=== PATIENT | female | born 1980 | race African-American/Black ===

== ENCOUNTER 2017-06-21 13:31 | Emergency (ER) | payer MEDICAID ==
[~2017-06-21] VITALS: Ht 172.7 cm; Wt 68.1 kg
[~2017-06-21 13:31] MED LIST: ASPI325T17 PO; CEPH-368 PO; DIAZ5TAB PO; NONE PER PT
[2017-06-21] MEDS ORDERED: IBUPROFEN 200 MG TABLET PO ONE (14:00)
[2017-06-21] MEDS ORDERED: IBUPROFEN 200 MG TABLET ONE (14:56)
[2017-06-21 16:00] VITALS: BP 126/90
== END 2017-06-21 16:25 | disposition home or self-care (01) ==
LOC: ED 16:15
DX: S20.212A Contusion of left front wall of thorax, initial encounter (principal); J45.909 Unspecified asthma, uncomplicated; I10 Essential (primary) hypertension; Y04.2XXA Assault by strike against or bumped into by another person, initial encounter; Y93.89 Activity, other specified; Y92.89 Other specified places as the place of occurrence of the external cause; Y99.8 Other external cause status
CPT/HCPCS: 99284

== ENCOUNTER 2017-11-11 11:17 | Emergency (ER) | payer MEDICAID ==
[~2017-11-11] VITALS: Ht 172.7 cm; Wt 69.0 kg
[2017-11-11] MEDS ORDERED: MELO15TA24 PO (11:33)
[2017-11-11] MEDS ORDERED: OMEP40CA6 PO (11:33)
[2017-11-11 12:20] LABS: BASOPHILS # (AUTO) 0.02 x10^3/uL (0-0.1); BASOPHILS % (AUTO) 1 % (0-1); EOSINOPHILS # (AUTO) 0.02 x10^3/uL (0-0.4); EOSINOPHILS % (AUTO) 0 % (1-7); LYMPHOCYTES # (AUTO) 2.65 x10^3/uL (1-3.4); LYMPHOCYTES % (AUTO) 50 % (22-44); MD NO; MEAN CORPUSCULAR HEMOGLOBIN 29.3 pg (27.0-34.8); MEAN CORPUSCULAR HGB CONC 33.4 g/dL (32.4-35.8); MEAN CORPUSCULAR VOLUME 87.7 fL (80-100); MONOCYTES # (AUTO) 0.37 x10^3/uL (0.2-0.8); MONOCYTES % (AUTO) 7 % (2-9); NEUTROPHILS # (AUTO) 2.22 x10^3/uL (1.8-6.8); NEUTROPHILS % (AUTO) 42 % (42-75); PLATELET COUNT 412 x10^3/uL (130-400); RED BLOOD COUNT 4.88 x10^6/uL (3.82-5.3); RED CELL DISTRIBUTION WIDTH 14.4 % (9.6-15.2)
[2017-11-11 12:26] LABS: ALBUMIN 4.4 g/dL (3.4-5.0); ANION GAP 6 mmol/L (5-15); CALCIUM 8.3 mg/dL (8.5-10.1); CHLORIDE 109 mmol/L (98-107)
[2017-11-11 12:27] LABS: SALICYLATE LEVEL < 1.7 mg/dL (2.8-20.0)
[2017-11-11 12:31] LABS: ACETAMINOPHEN < 2 mcg/mL (10-30)
[2017-11-11 12:41] LABS: AMPHETAMINE SCREEN, URINE Negative (Negative); BARBITURATE SCREEN, URINE Negative (Negative); BENZODIAZEPINE SCREEN, URINE Negative (Negative); CANNABINOID SCREEN, URINE Positive (Negative); COCAINE SCREEN, URINE Negative (Negative); METHADONE SCREEN, URINE Negative (Negative); OPIATE SCREEN, URINE Negative (Negative)
[2017-11-11 23:05] VITALS: BP 98/74
== END 2017-11-11 23:07 | disposition home or self-care (01) ==
LOC: ED 14:00
DX: T42.4X2A Poisoning by benzodiazepines, intentional self-harm, initial encounter (principal); F10.120 Alcohol abuse with intoxication, uncomplicated; F12.10 Cannabis abuse, uncomplicated; Y92.89 Other specified places as the place of occurrence of the external cause; Y90.9 Presence of alcohol in blood, level not specified
CPT/HCPCS: 36415; 80048; 80307; 80329; 82040; 84703; 85025; 93005; 99285; G0480

== ENCOUNTER 2018-05-01 13:53 | Emergency (ER) | payer MEDICAID ==
[~2018-05-01] VITALS: Ht 172.7 cm; Wt 69.2 kg
[~2018-05-01 13:53] MED LIST changes: +MELO15TA24 PO; +OMEP40CA6 PO
[2018-05-01] MEDS ORDERED: KETOROLAC 30 MG/1 ML ONE (14:59)
[2018-05-01] MEDS ORDERED: KETOROLAC 30 MG/1 ML IM ONE (15:00)
[2018-05-01 15:50] VITALS: BP 143/81
== END 2018-05-01 15:55 | disposition home or self-care (01) ==
LOC: ED 15:50
DX: M25.561 Pain in right knee (principal); I10 Essential (primary) hypertension; J45.909 Unspecified asthma, uncomplicated
CPT/HCPCS: 73564; 96372; 99284; J1885

== ENCOUNTER 2018-11-17 12:38 | Emergency (ER) | payer MEDICAID ==
[~2018-11-17] VITALS: Ht 172.7 cm; Wt 75.1 kg
[2018-11-17] MEDS ORDERED: IBUPROFEN 600 MG TABLET PO ONE (14:30)
[2018-11-17 14:48] LABS: HCG UR SG 1.029 (1.003-1.030)
[2018-11-17 14:56] LABS: MICROSCOPIC INDICATED
--- NOTE | 2018-11-17 14:57 | NUR ---
UA SENT. LABS DRAWN. PATIENT TECTING ON PHONE AND WALKING AROUND ROOM.
[2018-11-17 14:58] LABS: BASOPHILS # (AUTO) 0.03 x10^3/uL (0-0.1); BASOPHILS % (AUTO) 0 % (0-1); EOSINOPHILS % (AUTO) 0 % (1-7); LYMPHOCYTES # (AUTO) 2.29 x10^3/uL (1-3.4); LYMPHOCYTES % (AUTO) 16 % (22-44); MD NO; MEAN CORPUSCULAR HEMOGLOBIN 28.4 pg (27.0-34.8); MEAN CORPUSCULAR HGB CONC 32.7 g/dL (32.4-35.8); MEAN CORPUSCULAR VOLUME 86.9 fL (80-100); MEAN PLATELET VOLUME 7.9 fL (7.4-10.4); MONOCYTES # (AUTO) 0.41 x10^3/uL (0.2-0.8); MONOCYTES % (AUTO) 3 % (2-9); NEUTROPHILS # (AUTO) 11.97 x10^3/uL (1.8-6.8); NEUTROPHILS % (AUTO) 81 % (42-75); PLATELET COUNT 393 x10^3/uL (130-400); RED BLOOD COUNT 4.82 x10^6/uL (3.82-5.3); RED CELL DISTRIBUTION WIDTH 13.5 % (9.6-15.2)
[2018-11-17 15:05] VITALS: BP 137/90
[2018-11-17 15:08] LABS: ALANINE AMINOTRANSFERASE 27 U/L (12-78); ALBUMIN 4.3 g/dL (3.4-5.0); ANION GAP 9 mmol/L (5-15); CALCIUM 9.6 mg/dL (8.5-10.1); CHLORIDE 105 mmol/L (98-107); CREATININE 0.85 mg/dL (0.55-1.02)
[2018-11-17 15:11] LABS: ALKALINE PHOSPHATASE 85 U/L (45-117); BILIRUBIN,TOTAL 0.6 mg/dL (0.2-1.0); TOTAL PROTEIN 8.1 g/dL (6.4-8.2)
[2018-11-17 15:28] LABS: CULTURE INDICATED? NO
--- NOTE | 2018-11-17 15:49 | NUR ---
PATIENT PLACED IN RECHECK. NO SCHOOL
== END 2018-11-17 16:11 | disposition home or self-care (01) ==
LOC: ED 14:57
DX: K52.9 Noninfective gastroenteritis and colitis, unspecified (principal); I10 Essential (primary) hypertension
CPT/HCPCS: 36415; 74022; 80053; 81001; 81025; 83690; 85025; 99284